=== PATIENT | female | born 1965 | race Caucasian/White ===

== ENCOUNTER 2016-08-18 20:13 | Emergency (ER) | payer OTHER ==
[~2016-08-18] VITALS: Ht 177.8 cm; Wt 89.1 kg
[~2016-08-18 20:13] MED LIST: B COMPLETE1 EACH PO; B COMPLEX #11 EACH PO; BUPROPION HCL100 M1 PO; DAILY VALUE1 EACH PO; NORVASC5 MG PO; OXYCODONE HCL15 MG PO; PANTOPRAZOLE SO40 MG PO; VITAMIN C1000 MG PO
[2016-08-18 22:46] LABS: HEMATOCRIT 39.3 % (36.0-46.0); MCH 30.1 PG (29.0-34.0); MCHC 33.6 G/DL (30.0-36.0); MCV 89.5 FL (83-99); MEAN PLAT.VOLUME 10.6 uM^3 (9.5-12.4); PLATELET COUNT 262 K/uL (156-360); RBC DIS.WIDTH-CV 12.8 % (11.8-14.6); RBC DIS.WIDTH-SD 41.5 % (39-53); RED BLOOD COUNT 4.39 M/uL (3.80-5.20); WHITE BLOOD COUNT 6.3 K/uL (4.1-10.2)
[2016-08-18 23:01] LABS: CHLORIDE 108 mEq/L (99-109); POTASSIUM 3.5 mEq/L (3.7-5.4); SODIUM 142 mEq/L (136-147)
[2016-08-18 23:03] LABS: GLUCOSE 83 mg/dL (70-99)
[2016-08-18 23:04] LABS: ANION GAP 8 MEQ/L (2-14)
[2016-08-18 23:06] LABS: GFR ESTIMATE (CALCULATED) > 59 mL/min/
[2016-08-18 23:07] LABS: UREA NITROGEN (BUN) 10 mg/dL (9-23)
[2016-08-18 23:09] LABS: URIC ACID 4.5 mg/dL (3.1-9.2)
[2016-08-18 23:42] LABS: RED CELL COUNT 2000 /MM^3 (0-1); WHITE CELL COUNT 414 /MM^3 (0-200.0)
[2016-08-18 23:45] LABS: APPEARANCE SL.HAZY/COLORLESS
[2016-08-19 00:11] LABS: MONO RAW COUNT 96; MONONUCLEAR WBC'S 96 %; POLY RAW COUNT 4; POLYNUCLEAR WBC'S 4 % (0-25); SYNOVIAL FLUID EOSINOPHILS 0 % (0-25)
[2016-08-19 00:46] LABS: SAMPLE HEMOLYSIS CHECK 0; SAMPLE ICTERIC CHECK 0; SAMPLE LIPEMIA CHECK 0
[2016-08-19] MEDS ORDERED: PERCOCET 5/31 TABLET PO (01:04)
[2016-08-19 01:21] VITALS: BP 145/75
[2016-08-19 08:41] LABS: CRYSTALS NO CRYSTALS SEEN
== END 2016-08-19 01:22 | disposition home or self-care (01) ==
LOC: EME 20:13
PROVIDERS: Physician Assistant
PROC: 0S9D3ZZ Drainage of Left Knee Joint, Percutaneous Approach (ICD-10-PCS; principal; 2016-08-18)
DX: M25.462 Effusion, left knee (principal); M25.562 Pain in left knee; I10 Essential (primary) hypertension; Z87.891 Personal history of nicotine dependence
CPT/HCPCS: 73564; 80048; 84550; 85027; 86140; 89051; 89060; 99281; 99284